=== PATIENT | female | born 1960 | race Caucasian/White ===

== ENCOUNTER 2016-05-31 19:46 | Emergency (ER) | payer OTHER ==
[~2016-05-31] VITALS: Ht 170.2 cm; Wt 67.3 kg
[2016-05-31 20:00] VITALS: BP 159/101; PULSE 81; RESP 15; O2SAT 98
--- NOTE | 2016-05-31 20:10 | ED.REPORT ---
HPI-Chest Pain 40 and Over Date of Service May 31, 2016 ED Provider: Migel Akins MD Pt is a 55 y/o female presenting to the ED c/o intermittent sharp substernal CP and hypertension of 180/100 onset about 07:00 today. These episodes of CP last up to 1 second at a time and she has felt somewhat anxious because of these episodes. Her pain is not exacerbated by movement, exertion, cough. There are no relieving factors. Pt denies nausea, vomiting, unilateral leg swelling. She has experienced similar pain previously and was told that her workup was normal. She has no history of CAD or SD. She has a family history of SD in her mother at age 40. PCP: Dr. New Nursing Notes Stated Complaint: CHEST PAIN, HIGH BP Chief Complaint: Chest Pain Nursing Notes Reviewed: Yes Allergies: Uncoded Allergies: SULFA (Allergy, Severe, ALDRIDGE, 05/31/16) General Time Seen by MD: 20:10 Chief Complaint Chest pain Hx Obtained From: Patient Arrived By: Walk-in Sudden in Onset?: No Onset Occurred: 9 - 12 hours ago Symptom Duration: Intermittent Location: : Substernal Quality: Painful, Sharp Severity: Current: No pain currently Severity: Maximum: Mild Similar Sx Previous: Yes Past Medical History Past Medical History Back pain Past Surgical History None reported Family History CAD Smoking History Unknown if Ever Smoker Ambulatory Status Independent Review of Systems Constitutional: Denies: Chills, Fever Respiratory: Denies: Non-productive cough, Shortness of breath Cardiovascular: Reports: Chest pain, Denies: Dyspnea on exertion GI: Denies: Abdominal pain, Nausea, Vomiting Complete sys rev & neg: except as marked. Physical Exam Initial Vital Signs Vital Signs (First) Date Time Temp Pulse Resp B/P Pulse Ox O2 Delivery O2 Flow Rate FiO2 05/31/16 20:00 36.7 81 15 159/101 98 Room Air Initial VS: Reviewed, Vital signs normal Head / Eyes: Atraumatic, Normocephalic, PERRL ENT: Mucous membranes moist, Conjunctiva normal, No scleral icterus Neck: Supple, Full range of motion Extremities: Vascular intact, Neuro intact, No swelling, No tenderness Skin: Warm, Dry, No cyanosis Neurologic: Alert, Oriented, Nonfocal Psychiatric: Mood/affect normal, Behavior normal, Normal thought content General/Constitutional: Awake, Alert, No acute distress, Cooperative, Not toxic appearing Respiratory / Chest: Atraumatic, Breath sounds NL, Breath sounds = bilat, No respiratory distress, No rales, No rhonchi, No wheezing, No retractions, No stridor, No chest tenderness, No chest wall deformity, No crepitus Cardiovascular: Heart rate NL, Regular rhythm, Heart sounds NL, No gallop, No murmurs, No rubs, Cap refill not delayed, Peripheral circulation NL Abdomen: Atraumatic, Soft, Non-tender, No guarding, No rebound, No distention, No palpable mass Interpretation & Diagnostics Lab Results Interpretation Result Diagram: 05/31/16201405/31/16 2015 Test 05/31/16 20:15 05/31/16 20:28 White Blood Count 9.4th/mm3 (3.8-10.1) Red Blood Count 3.79mil/mm3 (3.90-5.20) Hemoglobin 12.3g/dL (12.0-15.6) Hematocrit 36.3% (35.0-46.0) Mean Corpuscular Volume 95.8fL (81-100) Mean Corpuscular Hemoglobin 32.5pg (27.0-35.0) Mean Corpuscular Hemoglobin Concent 33.9% (32.0-37.0) Red Cell Distribution Width 13.2% (12.3-15.4) Platelet Count 261bil/L (150-400) Neutrophils (%) (Auto) 51.1% (40-74) Lymphocytes (%) (Auto) 37.7% (14-46) Monocytes (%) (Auto) 9.7% (4-12) Eosinophils (%) (Auto) 1.0% (0-5) Basophils (%) (Auto) 0.2% (0-3) Sodium Level 140mEq/L (134-144) Potassium Level 3.9mEq/L (3.5-5.2) Chloride Level 102mEq/L (97-108) Carbon Dioxide Level 23mmol/L (18-29) Blood Urea Nitrogen 19mg/dL (6-24) Creatinine 0.79mg/dL (0.57-1.00) Estimat Glomerular Filtration Rate 107mL/min (>59) Glucose Level 93mg/dL (60-99) Calcium Level 8.9mg/dL (8.5-10.1) Magnesium Level 2.2mg/dL (1.6-2.6) Total Bilirubin 0.2mg/dL (0.0-1.2) Aspartate Amino Transf (AST/SGOT) 19U/L (0-50) Alanine Aminotransferase (ALT/SGPT) 18U/L (0-32) Alkaline Phosphatase 27U/L (25-150) Troponin T < 0.010ug/L (0.0-0.011) Total Protein 7.0g/dL (6.4-8.4) Albumin 4.2g/dL (3.4-5.0) Hold Moraes Top Tube Received (Received) ECG Interpretation ECG Interpretation: Sinus rhythm rate 73 Moderate LAD Inferior Q waves present Time: 21:10 Interpreted by: ED physician Normal ECG Interpretation: No acute ischemic changes X-Ray Chest Interpretation Chest Xray Interpretation: IMPRESSION: Acute disease is not seen in the portable upright chest. Dictated by: Ady Rivera M.D. on 05/31/2016 at 20:41 Approved by: Ady Rivera M.D. on 05/31/2016 at 20:42 View: Portable, 1 view Interpretation / Wet Read by: Interpret - Radiologist Re-Eval/Medical Decision Med Decision/Clinical Course Pt is a 55 y/o female presenting to the ED c/o intermittent sharp substernal CP and hypertension of 180/100 onset about 07:00 today. These episodes of CP last up to 1 second at a time and she has felt somewhat anxious because of these episodes. Her pain is not exacerbated by movement, exertion, cough. There are no relieving factors. Pt denies nausea, vomiting, unilateral leg swelling. She has experienced similar pain previously and was told that her workup was normal. She has no history of CAD or SD. She has a family history of SD in her mother at age 40. Emergency department the patient is mildly hypertensive though otherwise afebrile stable vital signs and in no apparent distress. EKG was obtained and interpreted by myself as documented above. CXR: Obtained, reviewed and interpreted by myself shows no evidence of acute infiltrates, effusions or pneumothorax. Cardiac and mediastinal silhouette normal. No bony or soft tissue abnormalities. CBC: unremarkable CMP: unremarkable Troponin negative Initial screening EKG and troponin in the setting of greater than 8 hours of symptoms and reassuring against acute coronary syndrome. Description of pain as sharp and lasting 1 second is not particularly suggestive of acute coronary syndrome either. She denies any exertional symptoms. She does not have any coronary artery disease risk factors other than family history. She denies any dyspnea or pleuritic component to her symptoms. She has no recent major pulmonary embolus risk factors and physical exam is without any findings suggestive of DVT. She is without tachycardia, tachypnea or hypoxia. I do not feel the workup for pulmonary embolism is indicated based on her presentation today. After the patient admission for further cardiac risk stratification however she has an appointment on Saturday with her primary care physician and would like to pursue this on an outpatient basis. Given her negative initial workup and relatively low suspicion at this time I feel that this is appropriate gross inspection. Following return precautions were reviewed in detail and the patient was discharged in stable condition. Time of Eval: 21:15 Re-Evaluation/Progress Note: Pt rechecked. Informed pt of plan for treatment. Pt understands and agrees with plan for treatment. F/U instructions and RTER warnings given. All questions addressed. Counseled Regarding: Diagnosis, Lab results, Need for follow-up, When/why to return to ED Discharge & Departure Primary Impression: Chest pain Chest pain type: unspecified Qualified Code: R07.9 - Chest pain, unspecified Additional Impressions: Hypertension Hypertension type: unspecified secondary hypertension Hypertension goal: unspecified goal Qualified Code: I15.9 - Secondary hypertension, unspecified Family history of coronary artery disease Anxiety Disposition: Home Discharge Condition All VS Reviewed: Yes Condition: Stable Patient Instructions: Chest Pain (ED) Additional Instructions: Thank you for seeking care at the emergency room. It is difficult for us to make definitive diagnoses in the ED but we believe that you are experiencing chest pain which is likely not cardiac in nature. Our primary goal today in the ED was to evaluate you for any life-threatening conditions. Your evaluation was reassuring. You should follow-up with your primary doctor on Saturday as scheduled. A stress test may be considered at that time. Record your BP 3 times a day and bring this data to your appointment. You should return to the ED immediately if you develop worsening or persistent chest pain, chest pain with exertion, shortness of breath with exertion, fevers , vomiting, cough, shortness of breath, lightheadedness, weakness or any other concerning signs or symptoms. Thank you for letting us partake in your care today. Referrals: Shiv Alfaro MD (Family) Scribe Attestation Portions of this note were transcribed by Sal Cade. I, Dr. Akins personally performed the history, physical exam and medical decision-making; I reviewed and confirmed the accuracy of the information in the transcribed note. Signed by Edilberto Whitlock, 05/31/16 - 2099 copies to: Shiv Alfaro MD, Beck O MD May 31, 2016 20:10 SAL CADE May 31, 2016 20:53
[2016-05-31 20:15] VITALS: BP 145/88; PULSE 74; RESP 17; O2SAT 98
[2016-05-31] MEDS ORDERED: 0.9% Sodium Chloride 1,000 ML IV ONE (20:25)
[2016-05-31 20:31] LABS: BASOPHILS % (AUTO) 0.2 % (0-3); MONOCYTES % (AUTO) 9.7 % (4-12); Mean Corpuscular Hemoglobin 32.5 pg (27.0-35.0); Mean Corpuscular Volume 95.8 fL (81-100); NEUTROPHILS % (AUTO) 51.1 % (40-74); Platelet Count 261 bil/L (150-400)
--- NOTE | 2016-05-31 20:43 | DRSVH ---
PROCEDURE: X-RAY CHEST ONE VIEW, PORTABLE ([id number]) INDICATIONS: CP TECHNIQUE: One view of the chest was acquired. COMPARISON: None. FINDINGS: Surgical changes and devices: secured entrance monitor leads are seen over the chest. Lungs and pleura: No pleural effusions or pneumothorax. Lungs are clear. Mediastinum: Mediastinal contours appear normal. Heart size is normal. Bones and chest wall: No suspicious bony lesions. Overlying soft tissues appear unremarkable. IMPRESSION: Acute disease is not seen in the portable upright chest. Dictated by: Ady Rivera M.D. on 05/31/2016 at 20:41 Approved by: Ady Rivera M.D. on 05/31/2016 at 20:42
[2016-05-31 21:04] LABS: Magnesium 2.2 mg/dL (1.6-2.6)
[2016-05-31 21:07] LABS: TROPONIN T < 0.010 ug/L (0.0-0.011)
[2016-05-31 21:30] VITALS: BP 143/110; PULSE 72; RESP 14; O2SAT 100
[2016-05-31 22:15] VITALS: BP 143/110; PULSE 72; RESP 14; O2SAT 100
== END 2016-05-31 22:17 | disposition home or self-care (01) ==
LOC: SED 19:46
DX: R07.9 Chest pain, unspecified (principal); I10 Essential (primary) hypertension; F41.9 Anxiety disorder, unspecified; Z82.49 Family history of ischemic heart disease and other diseases of the circulatory system; Z88.2 Allergy status to sulfonamides
CPT/HCPCS: 36415; 71010; 80053; 83735; 84484; 85025; 93005; 96360; 99285; J7030